=== PATIENT | male | born 1980 | race Caucasian/White ===

== ENCOUNTER 2017-09-19 06:38 | Emergency (ER) | payer OTHER ==
[2017-09-19 06:57] VITALS: TEMP 97.8
--- NOTE | 2017-09-19 07:17 | ED PDOC ---
Arrival/HPI - General Chief Complaint: Upper Extremity Problem/Injury Time Seen by Provider: 09/19/17 07:03 Historian: Patient - History of Present Illness Narrative History of Present Illness (Text): 09/19/17 07:13 37 year old male, with no significant past medical history, who presents to the ED complaining of right shoulder pain radiating down the right arm x 1 day. Patient notes he woke up yesterday morning with pain but was able to function with minimal pain. Patient went to work, where he says the pain became worse throughout the day. Patient denies any fevers, chills, chest pain, abdominal pain, back pain, neck pain, shortness of breath, trauma/injury, or any other complaints. Time/Duration: 24 hours Symptom Onset: Gradual Symptom Course: Unchanged Activities at Onset: Light Context: Home Past Medical History - Provider Review Nursing Documentation Reviewed: Yes - Infectious Disease Hx of Infectious Diseases: None - Psychiatric Hx Substance Use: No Family/Social History - Physician Review Nursing Documentation Reviewed: Yes Family/Social History: Unknown Family HX Smoking Status: Never Smoked Hx Alcohol Use: No Hx Substance Use: No Allergies/Home Meds Allergies/Adverse Reactions: Allergies No Known Allergies Allergy (Verified 09/19/17 06:53) Review of Systems - Physician Review All systems were reviewed & negative as marked: Yes - Review of Systems Constitutional: Normal Eyes: Normal ENT: Normal Respiratory: Normal. absent: SOB, Cough Cardiovascular: Normal. absent: Chest Pain Gastrointestinal: Normal. absent: Abdominal Pain, Nausea, Vomiting Genitourinary Male: Normal. absent: Dysuria, Frequency, Hematuria, Urinary Output Changes Musculoskeletal: Normal. absent: Back Pain, Neck Pain Skin: Normal. absent: Rash Neurological: Normal. absent: Headache Endocrine: Normal Hemo/Lymphatic: Normal Psychiatric: Normal Physical Exam Vital Signs Reviewed: Yes Vital Signs Temp Pulse Resp BP Pulse Ox 09/19/17 08:26 80 19 147/80 100 09/19/17 06:55 97.8 F 83 18 153/84 H 98 Temperature: Afebrile Blood Pressure: Hypertensive Pulse: Regular Respiratory Rate: Normal Appearance: Positive for: Well-Appearing, Non-Toxic, Comfortable Pain Distress: None Mental Status: Positive for: Alert and Oriented X 3 - Systems Exam Head: Present: Atraumatic, Normocephalic Pupils: Present: PERRL Extroacular Muscles: Present: EOMI Conjunctiva: Present: Normal Mouth: Present: Moist Mucous Membranes Neck: Present: Normal Range of Motion. No: Meningeal Signs, MIDLINE TENDERNESS , Paraspinal Tenderness Respiratory/Chest: Present: Clear to Auscultation, Good Air Exchange. No: Respiratory Distress, Accessory Muscle Use Cardiovascular: Present: Regular Rate and Rhythm, Normal S1, S2. No: Murmurs Abdomen: No: Tenderness, Distention, Peritoneal Signs Back: Present: Normal Inspection. No: CVA Tenderness, Midline Tenderness, Paraspinal Tenderness Upper Extremity: Present: Tenderness (mild tenderness to the rt shoulder, tenderness with ROM). No: Cyanosis, Edema Lower Extremity: Present: Normal Inspection. No: Edema, CALF TENDERNESS Neurological: Present: GCS=15, CN II-XII Intact, Speech Normal Skin: Present: Warm, Dry, Normal Color. No: Rashes Psychiatric: Present: Alert, Oriented x 3, Normal Insight, Normal Concentration Medical Decision Making ED Course and Treatment: 09/19/17 07:19 Impression: 37 year old male presents to the ED complaining of rt shoulder pain radiating down the rt arm x 1 day. Plan: -- Xray Right Shoulder -- Toradol --reassess and disposition Progress Notes: 09/19/17 08:02 Xray Rt Shoulder reviewed, shows negative results. 09/19/17 14:22 xr neg. suspect bursitis va labrum injury vs rotator cuff injury. no fever, pain with rom septic joint unlikely. joint not hot to touch - RAD Interpretation Radiology Orders: 09/19/17 07:12 SHOULDER RIGHT [RAD] Stat - Medication Orders Current Medication Orders: Discontinued Medications Ketorolac Tromethamine (Toradol) 30 mg IM STAT STA Stop: 09/19/17 07:14 Last Admin: 09/19/17 07:21 Dose: 30 mg MAR Pain Assessment Document 09/19/17 07:21 RD (Rec: 09/19/17 07:22 [id number] Pain Reassessment Is this a pain reassessment? No Sleep Is patient sleeping during reassessment? No Presence of Pain Presence of Pain Yes Pain Scale Used Pain Scale Used Numeric IM Administration Charges Document 09/19/17 07:21 RD (Rec: 09/19/17 07:22 [id number] Injection Site MAR Injection Site Left Deltoid Charges for Administration # of IM Administrations 1 - Scribe Statement The provider has reviewed the documentation as recorded by the Scribe Anu Gagnon All medical record entries made by the Scribe were at my direction and personally dictated by me. I have reviewed the chart and agree that the record accurately reflects my personal performance of the history, physical exam, medical decision making, and the department course for this patient. I have also personally directed, reviewed, and agree with the discharge instructions and disposition. Disposition/Present on Arrival - Present on Arrival Any Indicators Present on Arrival: No History of DVT/PE: No History of Uncontrolled Diabetes: No Urinary Catheter: No History of Decub. Ulcer: No History Surgical Site Infection Following: None - Disposition Have Diagnosis and Disposition been Completed?: Yes Diagnosis: Shoulder pain Disposition: HOME/ ROUTINE Disposition Time: 09:00 Condition: STABLE Discharge Instructions (ExitCare): Shoulder Pain (DC) Additional Instructions: please follow up with your doctor return to er with worsening symptoms or concerns. please see specialist. you may need further imaging testing and procedures Prescriptions: Naproxen [Naprosyn] 500 mg PO BID PRN #14 tablet PRN Reason: Pain, Mild (1-3) Referrals: [facility] [Outside] - Follow up with primary [facility] [place] [facility] [Outside] - Follow up with primary PCP,NO [Primary Care Provider] - Follow up with primary Fernando Johnson MD [Staff Provider] - Follow up with primary Forms: [employer] (Nepali)
[2017-09-19 08:28] VITALS: BP 147/80; PULSE 80; RESP 19; O2SAT 100
--- NOTE | 2017-09-19 09:42 | RAD ---
PROCEDURE: Radiographs of the Right Shoulder HISTORY: pain COMPARISON: No prior study available for comparison FINDINGS: BONES: Normal. No fracture. JOINTS: Normal. Glenohumeral and acromioclavicular joints preserved. No significant osteoarthritis. SOFT TISSUES: Normal. OTHER FINDINGS: None. IMPRESSION: No evidence of acute displaced fracture nor dislocation. No significant degenerative osteoarthritis
== END 2017-09-19 08:26 | disposition home or self-care (01) ==
LOC: ED 06:38
DX: M25.511 Pain in right shoulder (principal)
CPT/HCPCS: 73030; 96372; 99283; J1885